=== PATIENT | female | born 1950 | race Caucasian/White ===

== ENCOUNTER 2020-08-02 12:16 | Day surgery (SDC) | payer MEDICARE ==
[~2020-08-02] VITALS: Ht 160 cm; Wt 89.4 kg
[2020-08-02] VITALS (8 sets, daily range): BP systolic 130–147; BP diastolic 47–58; PULSE 79–82; TEMP 97.5–98.3
[2020-08-02] MEDS ORDERED: ARMOUR THYROID120 MG PO (12:44)
[2020-08-02] MEDS ORDERED: NP THYROID15 MG PO (12:44)
[2020-08-02] MEDS ORDERED: ULTRAM 50MG TAB50 MG PO (14:37)
--- NOTE | 2020-08-02 15:15 | NUR ---
The patient arrived back to [facility] from the recovery room at this time. Post operative sammy signs were started at this time. The patient reports minimal pain at her incision sites at this time. The patient has three bandaids to her abdomen that appear clean, dry and intact. Call light is within reach. Will continue to monitor the patient.
--- NOTE | 2020-08-02 15:30 | NUR ---
The patient appears more alert and was given the water bottle she brought with her to drink and appears to be tolerating it well. Vital signs appear stable. Call light is remains within reach. Will continue to monitor the patient.
--- NOTE | 2020-08-02 15:40 | NUR ---
The patient agrees to try some wheat toast so she can take an oral pain pill to continue her pain control. Vital signs appear stable. Will continue to monitor the patient.
--- NOTE | 2020-08-02 16:00 | NUR ---
The patient has finished half her toast and appears to have tolerate it well. The patient reports minimal pain in her abdomen at this time. The nurse informed the patient that she needs to void in order to be discharged home. She verbalized understanding and is going to drink more water before she gets up to try.
--- NOTE | 2020-08-02 16:15 | NUR ---
The patient ambulated to the bathroom with the stand by assistance of one nurse and appeared to tolerate the activity well. The patient voidded without difficulty.
--- NOTE | 2020-08-02 16:30 | NUR ---
Discharge instructions were reviewed with the patient at this time. She verbalized understanding and has no questions for the nurse at this time. The patient's IV to her right hand was removed and a pressure dressing was applied to the site. The nurse instructed the patient to get dressed and notify the staff when she is ready to escorted out and her ride has arrived.
--- NOTE | 2020-08-02 17:12 | NUR ---
The patient was escorted out via wheelchair to a private vehicle by MARLENA Parisi. The patient's belongings and discharge paperwork were sent with her. The patient's daughter is present to drive her home.
== END 2020-08-02 17:12 | disposition home or self-care (01) ==
LOC: SDCO 12:16
DX: K40.90 Unilateral inguinal hernia, without obstruction or gangrene, not specified as recurrent (principal); Z90.49 Acquired absence of other specified parts of digestive tract; D64.9 Anemia, unspecified; Z96.653 Presence of artificial knee joint, bilateral; Z88.5 Allergy status to narcotic agent; Z88.8 Allergy status to other drugs, medicaments and biological substances; Z90.721 Acquired absence of ovaries, unilateral; M19.90 Unspecified osteoarthritis, unspecified site; E03.9 Hypothyroidism, unspecified; Z20.822 Contact with and (suspected) exposure to COVID-19
CPT/HCPCS: C1781; J1100; J2405; J2704; J3010; J7120

== ENCOUNTER 2023-02-18 12:45 | Outpatient (RCR) | payer MEDICARE ==
[~2023-02-18 12:45] MED LIST: ARMOUR THYROID120 MG PO; NP THYROID15 MG PO; ULTRAM 50MG TAB50 MG PO
== END 2023-03-14 | disposition home or self-care (01) ==
LOC: MKS.ESL.PT
DX: I89.0 Lymphedema, not elsewhere classified (principal); M54.50 Low back pain, unspecified

== ENCOUNTER 2023-04-05 15:00 | Outpatient (RCR) | payer MEDICARE | END 2023-04-13 | disposition home or self-care (01) | LOC: MKS.ESL.PT | DX: S76.311D Strain of muscle, fascia and tendon of the posterior muscle group at thigh level, right thigh, subsequent encounter (principal); M16.11 Unilateral primary osteoarthritis, right hip; M54.50 Low back pain, unspecified ==

== ENCOUNTER 2023-07-09 13:30 | Outpatient (RCR) | payer MEDICARE | END 2023-07-14 | disposition home or self-care (01) | LOC: WSPT | DX: I89.0 Lymphedema, not elsewhere classified (principal) ==

== ENCOUNTER 2023-08-01 15:45 | Outpatient (RCR) | payer MEDICARE | END 2023-08-14 | disposition home or self-care (01) | LOC: WSPT | DX: I89.0 Lymphedema, not elsewhere classified (principal) ==

== ENCOUNTER 2023-09-03 12:45 | Outpatient (RCR) | payer MEDICARE ==
[~2023-09-03 12:45] MED LIST changes: -Albuterol 0.083% Neb Soln 2.5 MG/3 ML UD IH ONE; -Methacholine Vial A (Clear Label Base-Cntrl) IH ONE; -Methacholine Vial B (Red Label) 0.0625 MG/ML 3 ML VIAL.NEB IH ONE; -Methacholine Vial C (Orange Label) 0.25 MG/ML 3 ML VIAL.NEB IH ONE; -Methacholine Vial D (Yellow Label) 1 MG/ML 3 ML VIAL.NEB IH ONE
== END 2023-09-12 | disposition home or self-care (01) ==
LOC: WSPT
DX: I89.0 Lymphedema, not elsewhere classified (principal)

== ENCOUNTER → 2023-09-03 | Outpatient (CLI) | payer MEDICARE ==
[~2023-09-03] MED LIST changes: +Albuterol 0.083% Neb Soln 2.5 MG/3 ML UD IH ONE; +Methacholine Vial A (Clear Label Base-Cntrl) IH ONE; +Methacholine Vial B (Red Label) 0.0625 MG/ML 3 ML VIAL.NEB IH ONE; +Methacholine Vial C (Orange Label) 0.25 MG/ML 3 ML VIAL.NEB IH ONE; +Methacholine Vial D (Yellow Label) 1 MG/ML 3 ML VIAL.NEB IH ONE
== END ==
LOC: COL.CARD 08-29 10:30
DX: R05.9 Cough, unspecified (principal); R06.02 Shortness of breath
CPT/HCPCS: J7674

== ENCOUNTER 2023-10-11 11:00 | Outpatient (RCR) | payer MEDICARE | END 2023-10-13 | LOC: WSPT | DX: I89.0 Lymphedema, not elsewhere classified (principal); M79.651 Pain in right thigh ==